=== PATIENT | male | born 1975 | race African-American/Black ===

== ENCOUNTER → 2017-02-05 08:25 | Outpatient (CLI) | payer MEDICAID ==
[~2017-02-05 08:25] MED LIST: PHENOBARBI20 MG/5 ML PO
[2017-02-17 12:39] VITALS: BMI 19.3
== END | disposition home or self-care (01) ==
LOC: D.US 08:25
DX: R17 Unspecified jaundice (principal)

== ENCOUNTER 2017-02-16 11:51 | Inpatient (IN) | payer MEDICAID ==
[~2017-02-16] VITALS: Ht 167.6 cm; Wt 54.4 kg
[2017-02-16] MEDS ORDERED: PHENOBARBI20 MG/5 ML PO (12:37)
[2017-02-16 13:01] LABS: HEMATOCRIT 32.7 % (42.0-54.0); HEMOGLOBIN 9.8 g/dL (13.5-17.5); MCH 27.5 pg (26.0-34.0); MCV 91.6 fL (80.0-100.0); RBC 3.57 10x6/uL (4.20-6.10); RDW 18.7 % (11.5-14.5); WBC 2.3 10x3/uL (4.8-10.8)
[2017-02-16 13:03] LABS: PLATELET COUNT 77 10x3/uL (130-400)
[2017-02-16 13:22] LABS: LYMPHOCYTES 14 % (15-50); MONOCYTES 4 % (2-11); NEUTROPHILS 77 % (40-80); PLATELET ESTIMATE DECREASED; ROULEAUX OCC
[2017-02-16 13:33] LABS: ALBUMIN 2.1 g/dL (3.4-5.0); ANION GAP 13.9 mmol/L (8-16); BILIRUBIN - TOTAL 9.43 mg/dL (0.2-1.3); CARBON DIOXIDE 27.2 mmol/L (21.0-32.0); CREATININE - SERUM 3.4 mg/dL (0.6-1.3); POTASSIUM - SERUM 4.1 mmol/L (3.5-5.1); PROTEIN - SERUM 7.2 g/dL (6.4-8.2)
--- NOTE | 2017-02-16 14:00 | NUR ---
PT RECIEVED VIA DIRECT ADMISSION FROM DR ALEXANDER OFFICE WITH ORDER TO ADMIT TO DR CALHOUN GROUP SALINE LOCK STARTED 20 GA TO RFA X 1 STICK ARM BOARD AND KERLEX WRAP APPLIED TO KEEP PT FROM PULLING AT LINE. 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 PER FAMILY HISTORY FROM MOTHER REPORT.
[2017-02-16 14:01] LABS: CALCIUM 14.9 mg/dL (8.5-10.1)
[2017-02-16 18:48] VITALS: BP 117/79; BMI 19.4
[2017-02-16 20:00] VITALS: BP 122/74
--- NOTE | 2017-02-16 20:10 | NUR ---
PATIENT RESTING IN BED WITH MOTHER AT BEDSIDE AND NO VISIBLE SIGNS OF DISTRESS. BROUGHT PATIENT JELLO AND APPLE JUICE PER MOM'S REQUEST. PATIENT'S MOM DENIES OTHER NEEDS AT THIS TIME. BED IN LOWEST POSITION AND CALL LIGHT WITHIN REACH. ENCOURAGED THE PATIENT AND MOM TO CALL IF THEY HAVE NEEDS.
[2017-02-17] VITALS: BP 107/73
--- NOTE | 2017-02-17 03:58 | NUR ---
PATIENT'S MOM AT BEDSIDE AND REFUSED MORNING VITAL SIGNS. PATIENT HAS BEEN AGITATED MOST OF THE NIGHT AND IS SLEEPING.
[2017-02-17 05:42] LABS: BASOPHILS 0 % (0-2); EOSINOPHILS 1.5 % (0-7); HEMATOCRIT 30.8 % (42.0-54.0); HEMOGLOBIN 9.2 g/dL (13.5-17.5); LYMPHOCYTES 10.4 % (15-50); MCH 27.3 pg (26.0-34.0); MCHC 29.9 g/dL (31.0-37.0); MCV 91.4 fL (80.0-100.0); MEAN PLATELET VOLUME 11.6 fL (7.4-10.4); MONOCYTES 8.9 % (2-11); NEUTROPHILS 79.2 % (40-80); PLATELET COUNT 73 10x3/uL (130-400); RBC 3.37 10x6/uL (4.20-6.10); RDW 19.1 % (11.5-14.5)
[2017-02-17 05:59] LABS: INR 1.05 (0.85-1.17); PROTIME 13.6 SECONDS (11.6-15.0)
[2017-02-17 06:01] LABS: D-DIMER-QUANTITATIVE 1.39 ug/mLFEU (0.20-0.54)
[2017-02-17 06:14] LABS: HEPATITIS C ANTIBODY <0.1 (0.0-0.9)
[2017-02-17 06:15] LABS: ALBUMIN 1.9 g/dL (3.4-5.0); BILIRUBIN - DIRECT 7.2 mg/dL (0.00-0.30); BILIRUBIN - TOTAL 8.17 mg/dL (0.2-1.3); CARBON DIOXIDE 24.9 mmol/L (21.0-32.0); CREATININE - SERUM 3.9 mg/dL (0.6-1.3); PROTEIN - SERUM 6.9 g/dL (6.4-8.2); T4 THYROXIN - FREE 1.21 ng/dL (0.76-1.46); THYROID STIMULATING HORMONE 2.5 uIU/mL (0.36-3.74)
[2017-02-17 06:29] LABS: ANION GAP 17.1 mmol/L (8-16); CALCIUM 12.1 mg/dL (8.5-10.1)
[2017-02-17 08:45] VITALS: BP 107/56
--- NOTE | 2017-02-17 10:02 | NUR ---
Patient Name: KAITLYN URRUTIA Admission Status: Elective Accout number: [id number] Admission Date: 02-16-2017 : 1975 Admission Diagnosis: Attending: ELVI CALHOUN Current LOS: 1 Anticipated DC Date: 02-22-2017 Planned Disposition: Home Primary Insurance: [place]ICAID [place] Discharge Planning Comments: CM MET WITH PATIENTS MOM (JOHN) REGARDING D/C NEEDS AND PLANS. PATIENT WILL RETURN HOME WITH MOTHER AT DISCHARGE. MOTHERS FRIEND (ISAMAR ARAUJO) WILL DRIVE PATIENT HOME AT DISCHARGE. PATIENT IS TOTALLY DEPENDENT FOR HIS CARE. MOTHER STATED HE HAS A WHEELCHAIR, AND A SHOWER CHAIR AT HOME. PATIENT HAS [facility] WEDNESDAY-WEDNESDAY FROM -. PATIENTS PCP IS DR. CALHOUN AND PHARMACY IS [facility] [address] [facility]. CM OFFERED HOME HEALTH AND MOTHER STATED [facility] HAS A NURSE THAT COMES BY. CM WILL CONTINUE TO FOLLOW PATIENT WITH D/C NEEDS AND PLANS. PCP DR. [facility] [address] [facility]- [phone] JOHN (MOM) [phone] Kinder Teacher: Noris العراقي Is the patient Alert and Oriented? No 0 * How many steps to enter\exit or inside your home? RAMP 0 * PCP DR. CALHOUN 0 * Pharmacy [facility] [address] [facility] 0 * Preadmission Environment Home with Family 0 * ADLs Independent 0 * Equipment Shower Chair Wheelchair 0 * List name and contact numbers for known caregivers / representatives who currently or will assist patient after discharge: JOHN URRUTIA (MOM) [phone] * Community resources currently utilized Other 0 * Please name any agencies selected above. [facility] * Additional services required to return to the preadmission environment? Yes 0 * Can the patient safely return to the preadmission environment? Yes 0 * Has this patient been hospitalized within the prior 30 days at any hospital? No 0 Grand Total: 0
--- NOTE | 2017-02-17 11:48 | NUR ---
BED LINENS CHANGED AND PT CLEANED UP.. HE HAS A BANDAID DRESSING ON HIS LEFT HIP. HE IS MAKING NOISES. HE IS PULLED UP IN BED AND PUT ON HIS LEFT SIDE. BED RAILS UP X 4. BED IS LOW. CALL LIGHT IN REACH.
[2017-02-17 12:36] VITALS: BP 127/71
[2017-02-17 12:39] VITALS: Ht 167.6 cm; Wt 54.4 kg
[2017-02-17 16:47] VITALS: BP 113/63
[2017-02-17 17:16] LABS: ERYTHROCYTE SEDIMENTATION RATE 105 mm/hr (0-15)
--- NOTE | 2017-02-17 18:39 | NUR ---
DR LOPEZ IS HERE TO SEE PT. WOULD LIKE TO GET HIM TRANSFERRED TO [facility]. MOUTH CARE DONE TODAY WITH SWABS AND WATER. HE WAS MORE COOPERATIVE THIS TIME. STEP FATHER AT BEDSIDE.
--- NOTE | 2017-02-17 21:12 | NUR ---
REC'D.IN BED LYING ON RT. SIDE.ALERT DOESN'T RESPOND VERBALLY BUT MAKES NOISES AT RANDOM.FAMILY AT BEDSIDE MOTHER HERE TALKING WITH DR. NIELSEN.WILL CONTINUE TO MONITOR FOR ANY CHGES. AND FOLLOW CURRENT PLAN OF CARE.
[2017-02-17 21:36] VITALS: BP 115/73
--- NOTE | 2017-02-18 02:18 | NUR ---
EYES CLOSED RESPIRATIONS WITH EASE AND UNLABORED. SR UP X2 CALL LIGHT WITHIN REACH.
[2017-02-18 05:31] LABS: BASOPHILS 0.4 % (0-2); EOSINOPHILS 1.6 % (0-7); HEMATOCRIT 31.4 % (42.0-54.0); HEMOGLOBIN 9.6 g/dL (13.5-17.5); IMMATURE GRANULOCYTES 0.8 % (0-5); LYMPHOCYTES 9.7 % (15-50); MCH 27.8 pg (26.0-34.0); MCHC 30.6 g/dL (31.0-37.0); MONOCYTES 10.5 % (2-11); PLATELET COUNT 77 10x3/uL (130-400); RBC 3.45 10x6/uL (4.20-6.10); RDW 18.9 % (11.5-14.5)
[2017-02-18 05:34] LABS: WBC 2.6 10x3/uL (4.8-10.8)
[2017-02-18 06:11] LABS: ALBUMIN 1.9 g/dL (3.4-5.0); BILIRUBIN - TOTAL 9.4 mg/dL (0.2-1.3); CARBON DIOXIDE 19.8 mmol/L (21.0-32.0); CREATININE - SERUM 4.8 mg/dL (0.6-1.3); POTASSIUM - SERUM 4.6 mmol/L (3.5-5.1); PROTEIN - SERUM 6.8 g/dL (6.4-8.2)
[2017-02-18 06:12] LABS: ANION GAP 21.8 mmol/L (8-16)
--- NOTE | 2017-02-18 08:53 | NUR ---
PT CONFUSED AT THIS TIME MOTHER AT BEDSIDE IV TO LEFT UPPER ARM PATENT AND INTACT AT THIS TIME SRX2 BED AT LOWEST SETTING CALL LIGHT WITHIN REACH WILL CONTINUE TO MONITOR
[2017-02-18 09:13] VITALS: BP 108/70
--- NOTE | 2017-02-18 11:21 | NUR ---
SPOKE TO DR ROA IN REGARDS TO URRUTIA, PER DR ROA ALL MEDICAL IMAGES MUST BE PUT ON A DISC TO BE TRANSFERRED TO [facility] WITH RENAN, CALLED MEDICAL IMAGING AND SPOKE TO NEREIDA AT 1122 AND ASKED THAT ALL IMAGES BE PUT ON A DISC FOR PT TO TRANSFER TO [facility]
[2017-02-18 12:30] VITALS: BP 111/72
--- NOTE | 2017-02-18 14:03 | NUR ---
Order rec'd to assist with transfer to [facility]. Initial request called to [facility] Access Team at [phone] - Spoke with Marlene. Request made. [facility] will contact Dr. Schumacher via cell phone for medical necessity.
--- NOTE | 2017-02-18 17:54 | NUR ---
PT TAKEN VIA STRETCHER VIA [facility] AT THIS TIME
[2017-02-19 13:11] LABS: HAPTOGLOBIN 12 mg/dL (34-200)
[2017-02-22 15:14] LABS: ALP - ISO (ALP) 1227 IU/L (39-117); ALP - ISO (BONE) FRACTION 28 % (12-68); ALP - ISO (LIVER) FRACTION 60 % (13-88); ALP - ISO(INTESTINAL) FRACTION 12 % (0-18)
[2017-02-23 08:19] LABS: SPE - A/G RATIO 0.6 (0.7-1.7); SPE - ALBUMIN 2.6 g/dL (2.9-4.4); SPE - ALPHA-1 GLOBULIN 0.3 g/dL (0.0-0.4); SPE - ALPHA-2 GLOBULIN 0.5 g/dL (0.4-1.0); SPE - BETA GLOBULIN 1.7 g/dL (0.7-1.3); SPE - GAMMA GLOBULIN 1.9 g/dL (0.4-1.8); SPE - M-SPIKE Not Observed g/dL (Not Observed)
--- NOTE | 2017-02-23 15:43 | CN ---
PATIENT NAME:KAITLYN URRUTIA MEDICAL RECORD: [id number] : 71 LOCATION:D.[facility] ADMIT DATE: 02/16/17 ACCOUNT: [id number] CONSULTING PHYSICIAN: ANGELA CORBETT MD REFERRING PHYSICIAN: ELVI CALHOUN MD DATE OF CONSULTATION: 02/16/2017 Consultation Note Addendum CHIEF COMPLAINT: Jaundice. HISTORY OF PRESENT ILLNESS: I saw this patient due to jaundice. I have personally reviewed the ultrasound report. Acute cholecystitis should not give you bilirubin of above 4.0. The patient's bilirubin is above 9. I think it is either due to intrinsic liver disease or choledocholithiasis. I would recommend a GI consultation with Dr. Schumacher. It is difficult to elicit any information from the patient. He is unable to provide me with any information due to neurologic problems. I am unable to determine whether he is having abdominal pain or not. It is unknown what aggravates and what alleviates his symptoms. This is a consultation note addendum. For the typed portion of the consult note, please see the chart. This would include the past medical and surgical history, allergies, family history as well as current medications. REVIEW OF SYSTEMS: Unobtainable from the patient due to his neurologic condition. PHYSICAL EXAMINATION: GENERAL: The patient does not appear acutely ill. He does appear chronically ill. VITAL SIGNS: Reviewed. HEAD: External ears appear normal. EYES: Scleral icterus is present. NECK: Trachea is midline. CHEST: No intercostal retractions. PULMONARY: Nonlabored. ABDOMEN: Tympanitic. It is difficult to determine if the patient has tenderness or not. I am unable to elicit any definite area of tenderness or peritonitis in this patient. EXTREMITIES: Extremity contractures. BACK: Some thoracic kyphosis is present. PSYCHIATRIC: Anxious affect. NEUROLOGIC: Markedly abnormal. The patient could not answer questions. IMPRESSION: Jaundice of uncertain etiology. I doubt that the degree of jaundice and the elevated bilirubin is due to acute cholecystitis. PLAN: Will be consult Dr. Schumacher. TRANSINT:[id number] Voice Confirmation ID: [id number] DOCUMENT ID: [id number] CONSULT REPORT [id number] RENANKAITLYNANGELA ALVES MD at 1542 CC: [id number] DICTATION DATE: 02/16/17 182 [employer] [facility] MANAGER: 02/16/171936 DIS IN 02/18/17 [facility] [address] [place] [address]
== END 2017-02-18 17:55 | disposition short-term general hospital (02) | DRG 840 ==
LOC: D.MS 11:51
PROVIDERS: Family Medicine Adult Medicine; Internal Medicine Gastroenterology; Internal Medicine Nephrology; Legal Medicine; ADMIT Family Medicine
DX: C85.90 Non-Hodgkin lymphoma, unspecified, unspecified site (principal); R53.2 Functional quadriplegia; N17.9 Acute kidney failure, unspecified; R17 Unspecified jaundice; E87.0 Hyperosmolality and hypernatremia; K81.0 Acute cholecystitis; D61.818 Other pancytopenia; E83.52 Hypercalcemia; F79 Unspecified intellectual disabilities